=== PATIENT | male | born 1940 | race Caucasian/White ===

== ENCOUNTER 2016-12-26 19:21 | Emergency (ER) | payer MEDICARE ==
[2016-12-26 19:21] VITALS: BMI 26.6
[2016-12-26 19:30] VITALS: BP 113/74; PULSE 64; RESP 18; TEMP 98; O2SAT 98
--- NOTE | 2016-12-26 19:45 | ED PDOC ---
Arrival/HPI - General Historian: Patient - History of Present Illness Time/Duration: < week (4 days) - General Chief Complaint: Cough, Cold, Congestion Time Seen by Provider: 12/26/16 19:42 - History of Present Illness Narrative History of Present Illness (Text): The patient is a 76yo male with past medical history of diabetes, presents to the emergency department for evaluation of a productive cough with green colored sputum, present for the past 4 days. Patient reports he has been taking Robitussin with no relief. He denies any associated fever, chills, chest pain, shortness of breath. He denies any recent foreign travels or known sick contacts. Patient offers no additional medical complaints. (Rian Spring) Past Medical History - Provider Review Nursing Documentation Reviewed: Yes - Travel History Have you recently traveled outside [place] w/in the past 3 mons?: No - Infectious Disease Hx of Infectious Diseases: None - Cardiac Hx Cardiac Disorders: No - Pulmonary Hx Respiratory Disorders: No - Neurological Hx Neurological Disorder: No - HEENT Hx HEENT Disorder: No - Renal Hx Renal Disorder: No - Endocrine/Metabolic Hx Endocrine Disorders: Yes Hx Diabetes Mellitus Type 2: Yes Hx Hypothyroidism: Yes - Hematological/Oncological Hx Blood Disorders: No - Integumentary Hx Hodge: No - Musculoskeletal/Rheumatological Hx Osteoarthritis: No - Gastrointestinal Hx Diverticulitis: No - Genitourinary/Gynecological Hx Incontinence: No - Psychiatric Hx Psychosis: No Hx Substance Use: No - Surgical History Other/Comment: unknown surgery - Anesthesia Hx Anesthesia: Yes Hx Anesthesia Reactions: No Family/Social History - Physician Review Nursing Documentation Reviewed: Yes Family/Social History: Other (non-contributory) Smoking Status: Former Smoker Hx Alcohol Use: No Hx Substance Use: No Allergies/Home Meds Allergies/Adverse Reactions: Allergies No Known Allergies Allergy (Verified 12/26/16 19:26) Home Medications: Home Meds Medication Instructions Recorded Confirmed MetFORMIN [glucoPHAGE] 1,000 mg PO DAILY 12/26/16 12/26/16 Review of Systems - Review of Systems Constitutional: absent: Fevers Respiratory: Cough, Sputum (green). absent: SOB Cardiovascular: absent: Chest Pain Neurological: absent: Headache, Dizziness Physical Exam Vital Signs Reviewed: Yes Appearance: Positive for: Non-Toxic, Comfortable - Systems Exam Head: Present: Atraumatic, Normocephalic Pupils: Present: PERRL Mouth: Present: Moist Mucous Membranes Neck: Present: Normal Range of Motion. No: MIDLINE TENDERNESS Respiratory/Chest: Present: Clear to Auscultation. No: Wheezes, Tachypneic Cardiovascular: Present: Regular Rate and Rhythm Neurological: Present: GCS=15, CN II-XII Intact Psychiatric: Present: Alert, Oriented x 3 Vital Signs Temp Pulse Resp BP Pulse Ox 12/26/16 19:29 98.0 F 64 18 113/74 98 Medical Decision Making ED Course and Treatment: cxr- nad disc w pt will give azithromycin to cover atypical organisms follow up and return prec advised. (Rian Spring) - RAD Interpretation Radiology Orders: 12/26/16 19:42 CHEST TWO VIEWS (PA/LAT) [RAD] Stat - Scribe Statement The provider has reviewed the documentation as recorded by the Scribe - Scribe Statement Chetna Carver Provider Scribe Attestation: All medical record entries made by the Scribe were at my direction and personally dictated by me. I have reviewed the chart and agree that the record accurately reflects my personal performance of the history, physical exam, medical decision making, and the department course for this patient. I have also personally directed, reviewed, and agree with the discharge instructions and disposition. (Rian Spring) Disposition/Present on Arrival - Present on Arrival Any Indicators Present on Arrival: No History of DVT/PE: No History of Uncontrolled Diabetes: No Urinary Catheter: No History of Decub. Ulcer: No History Surgical Site Infection Following: None - Disposition Have Diagnosis and Disposition been Completed?: Yes Disposition Time: 20:32 - Disposition Diagnosis: Cough Disposition: HOME/ ROUTINE Condition: GOOD Additional Instructions: Please follow up with your doctor for your official xray results. Return to the ER for any worsening symptoms or for any other concerns. Prescriptions: Azithromycin 250 mg PO DAILY #6 tab Promethazine [Phenergan Syrup] 12.5 mg PO Q12H PRN #10 dose PRN Reason: Cough Referrals: Moris Hollingsworth MD [Primary Care Provider] - Follow up with primary Forms: [employer] (Greek) - Notes Notes (Text): 12/27/16 14:45 CXR : FINDINGS: LUNGS: No acute infiltrate is appreciate bilaterally. However, there are a few faint nodular foci are appreciated at the bilateral bases as well as 1 or 2 at each apex suspicious for a pulmonary nodules, likely all under 1 cm size. Precautionary follow-up chest is advised for greater characterization foci. What is foci, at the right apex, likely represents a calcified granuloma. PLEURA: No significant pleural effusion identified. No pneumothorax apparent. CARDIOVASCULAR: Borderline cardiomegaly. No pulmonary vascular derangement. OSSEOUS STRUCTURES: No significant abnormalities. VISUALIZED UPPER ABDOMEN: Normal. OTHER FINDINGS: None. IMPRESSION: No acute infiltrate appreciated or pleural effusion bilaterally. Scattered pulmonary nodules are questioned infrequently at the bilateral apices and bases which follow-up chest CT can be performed for greater characterization. Borderline cardiomegaly. Pt called, notified of results, instructed to call his pmd and f/u, to make arrangements for outpt CT chest. Pt verbalize understanding of instructions and intends to f/u. (Miki HENDERSON,Colleen Muñoz)
--- NOTE | 2016-12-27 10:16 | RAD ---
HISTORY: cough COMPARISON: No prior. TECHNIQUE: Chest PA and lateral FINDINGS: LUNGS: No acute infiltrate is appreciate bilaterally. However, there are a few faint nodular foci are appreciated at the bilateral bases as well as 1 or 2 at each apex suspicious for a pulmonary nodules, likely all under 1 cm size. Precautionary follow-up chest is advised for greater characterization foci. What is foci, at the right apex, likely represents a calcified granuloma. PLEURA: No significant pleural effusion identified. No pneumothorax apparent. CARDIOVASCULAR: Borderline cardiomegaly. No pulmonary vascular derangement. OSSEOUS STRUCTURES: No significant abnormalities. VISUALIZED UPPER ABDOMEN: Normal. OTHER FINDINGS: None. IMPRESSION: No acute infiltrate appreciated or pleural effusion bilaterally. Scattered pulmonary nodules are questioned infrequently at the bilateral apices and bases which follow-up chest CT can be performed for greater characterization. Borderline cardiomegaly.
== END 2016-12-26 20:39 | disposition home or self-care (01) ==
LOC: ED 19:21
DX: R05 Cough (principal)